=== PATIENT | female | born 1965 | race Caucasian/White ===

== ENCOUNTER → 2021-09-22 13:01 | Outpatient (BNVA) | payer MEDICAID, SELFPAY | PROVIDERS: Visit Provider Nurse Practitioner | DX: Z13.6 Encounter for screening for cardiovascular disorders (principal); Z87.891 Personal history of nicotine dependence | CPT/HCPCS: 71046; 80053; 80061; 84443; 85025 ==

== ENCOUNTER → 2021-09-29 10:08 | Outpatient (BNVA) | payer MEDICAID, SELFPAY | PROVIDERS: Visit Provider Nurse Practitioner | DX: G43.909 Migraine, unspecified, not intractable, without status migrainosus (principal); Z87.891 Personal history of nicotine dependence | CPT/HCPCS: 71046 ==

== ENCOUNTER → 2021-11-17 13:21 | Outpatient (BNVA) | payer MEDICAID, SELFPAY | PROVIDERS: Visit Provider Nurse Practitioner | DX: G43.909 Migraine, unspecified, not intractable, without status migrainosus (principal); M89.8X2 Other specified disorders of bone, upper arm; R20.2 Paresthesia of skin; E55.9 Vitamin D deficiency, unspecified | CPT/HCPCS: 72040; 73060; 80048; 82306 ==

== ENCOUNTER 2021-12-03 14:50 | Outpatient (CLI) | payer MEDICAID, SELFPAY ==
--- NOTE | 2021-12-03 14:55 | MM_ITS ---
WS: [id number] BILATERAL 3D TOMOSYNTHESIS DIGITAL SCREENING MAMMOGRAPHY WITH CAD CLINICAL INFORMATION: Z12.39 - Encounter for other screening for malignant neop... HISTORY: Screening mammogram. No current complaints. COMPARISON: None. TECHNIQUE: Bilateral CC and MLO views. FINDINGS: The breasts are composed of heterogeneous fibroglandular density tissue, which can limit the detectio n of small underlying mass lesions. A few incidental punctate calcifications. No suspicious mass, asy mmetry, calcifications, or architectural distortion. No evidence of malignancy. MM/[place] [id number] IMPRESSION: BI-RADS: 2-Benign FOLLOW UP: 1 Year Follow-up Recommend return to annual screening mammography.
== END 2021-12-03 14:51 | disposition home or self-care (01) ==
LOC: RAD 14:54
PROVIDERS: PCP Nurse Practitioner; Visit Provider Nurse Practitioner
DX: Z12.31 Encounter for screening mammogram for malignant neoplasm of breast (principal)
CPT/HCPCS: 77063; 77067

== ENCOUNTER 2022-04-18 06:23 | Emergency (ER) | payer MEDICAID, SELFPAY ==
[2022-04-18 06:29] VITALS: BP 112/75; PULSE 71; RESP 18; TEMP 36.8; O2SAT 98; BMI 20.2
--- NOTE | 2022-04-18 06:36 | ECG_ITS ---
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 Measurements Intervals [place] Rate: 69 P: 74 VT: 161 QRS: 68 QRSD: 94 T: 63 QT: 387 QTc: 416 Interpretive Statements SINUS RHYTHM No previous ECG available for comparison Electronically Signed On 04-18-2022 14:58:55 ADOLESCENT COORDINATOR by Viraj Bhat M.D. [id number]
--- NOTE | 2022-04-18 06:52 | XR_ITS ---
WS: [id number] PORTABLE CHEST HISTORY: dyspnea COMPARISON: 09/29/2021 Lungs are clear and well expanded. No pleural effusion or pneumothorax. Cardiac size: Normal. Mediastinum/Aorta: Normal mediastinum. No osseous abnormality seen. XR/XR chest 1V portable [id number] IMPRESSION: Unremarkable portable chest.
--- NOTE | 2022-04-18 06:54 | W.ED.CHESTPA ---
HPI - Chest Pain General: Chief Complaint: Anxiety Stated Complaint: swollen throat, doesn't feel well Time Seen by Provider: 04/18/22 06:30 Source: patient Mode of arrival: ambulatory History of Present Illness: 56-year-old female presents emergency room complaining of shortness of breath. She states she woke up suddenly in night float felt tired and felt like she could not get her breath she had some chest discomfort. She has not recently had a fever sweats chills no productive cough. Patient has a history of anxiety she does smoke she has no personal history of coronary artery disease but tells me that her has a history of coronary artery disease. No flulike symptoms no productive cough. She is not having any chest discomfort at this time. MD complaint: chest pain Onset (ago): minute(s) Timing of current episode: episodic Onset: during rest Pain location: substernal Pain radiation: none Severity: mild Quality: tightness and aching Relieving factors: nothing Exacerbating factors: nothing Associated symptoms: Reports dyspnea; Deny abdominal pain, diaphoresis, fever(s), leg edema, nausea, palpitations, sense of impending doom, syncope or vomiting Treatment prior to arrival: none Review of Systems Const: Denies: fever(s), chills, fatigue, malaise or diaphoresis ENMT: Denies: throat pain, ear or mastoid pain, nasal discharge or nasal congestion Card: Reports: chest pain; Denies: palpitations, irregular heart rhythm, edema, syncope, dyspnea on exertion or orthopnea Resp: Reports: dyspnea; Denies: productive cough, non-productive cough or wheezing GI: Denies: abdominal pain, nausea or vomiting : Denies: flank pain, difficulty voiding, dysuria, urinary frequency or urinary urgency Skin/Breast: Denies: rash or pruritus PFSH ED PFSH: Medical History Anxiety, generalized Blind hypertensive eye, right Migraine Personal history of nicotine dependence age 15 Surgical History History of eye surgery right eye 8 to 10 surgeries History of laparotomy Cyst ovary Family History Grandmother Cancer Mother Cancer Other Diabetes Denies family history of Stroke Social History Smoking and tobacco status: current every day smoker Second hand smoke exposure: No Smoking risk assessment/counseling performed?: Yes Alcohol intake: never Desire information about alcohol rehabilitation?: No Counseling given: No Desire information about substance/drug rehabilitation?: No Counseling given: No Adopted: No Caregiver/support person: No Lives independently: Yes Household members: spouse Housing: House Marital status: Number of children: 2 service: No Current occupational status: unemployed Current occupational exposures/hazards: No Pets and animals: Yes Pets & animals: dog(s) History of recent travel: No Current gender identity: Female Physical Exam Const: COMMON NORMALS: no acute distress GENERAL APPEARANCE: cooperative and comfortable ORIENTATION/CONSCIOUSNESS: Yes awake, Yes oriented to person, Yes oriented to place and Yes oriented to time HENMT: COMMON NORMALS: normocephalic, atraumatic, hearing grossly normal bilaterally, external ears normal, EAC's normal, TM's normal bilaterally, Normal nasal mucous membranes and turbinates present, moist oral mucous membranes and oropharynx normal HEAD & SCALP: normocephalic and atraumatic NOSE: Normal nasal mucous membranes and turbinates present EXTERNAL EAR: Yes external ears normal EXTERNAL AUDITORY CANAL: EAC's normal TYMPANIC MEMBRANE: TM's normal bilaterally Eye: COMMON NORMALS: Equal, round and reactive pupils present, EOMs intact bilaterally, conjunctivae normal and no scleral icterus CONJUNCTIVA: Yes conjunctivae normal PUPIL: Yes Equal, round and reactive pupils present Neck/C-Spine: COMMON NORMALS: full ROM, no lymphadenopathy, supple and no JVD Lymph: LYMPHATIC: no lymphadenopathy noted and no lymphedema noted Resp: COMMON NORMALS: normal respiratory effort, No retractions, No use of accessory muscles and clear to auscultation bilaterally AUSCULTATION: clear to auscultation bilaterally Cardio: COMMON NORMALS: no JVD, regular rate, regular rhythm and No murmurs present (Cardio) RATE: regular rate RHYTHM: regular rhythm GI: COMMON NORMALS: Soft to palpation and No hepatosplenomegaly present AUSCULTATION: Yes normoactive bowel sounds PALPATION: Yes Soft to palpation, No Tenderness to palpation present (GI), No Guarding due to palpation present (GI) and Yes No hepatosplenomegaly present Extremity: COMMON NORMALS: normal to inspection, capillary refill normal, no clubbing, cyanosis or edema, no calf tenderness and no pedal edema Neuro: SENSORIUM/ORIENTATION: Yes oriented to person, Yes oriented to place and Yes oriented to time Skin: COMMON NORMALS: no rashes or lesions noted GENERAL SKIN EXAM: no rashes or lesions noted Course Vital Signs: Vital signs: Vital Signs Temperature 98.3 F 04/18/22 06:29 Pulse Rate 59 L 04/18/22 08:43 Respiratory Rate 25 H 04/18/22 08:06 Blood Pressure 104/71 04/18/22 08:43 Pulse Oximetry 98 04/18/22 08:43 Oxygen Delivery Me thod 04/18/22 08:43 MDM - Chest Pain Medical Decision Making EKG does not show any acute changes normal sinus rhythm with no ST changes. Troponins are negative. Chest x-ray unremarkable patient has normal to bradycardic heart rate with normal oxygen saturations. She is not having any significant chest discomfort associated with this she has had multiple episodes of this in the past stretching over 5 years think this is more anxiety there is no evidence of pulmonary embolism pneumonia pneumothorax dissecting aneurysm or acute coronary syndrome. We will discharge patient home encouraged to follow-up with her primary care doctor sent a very low-dose Effexor may benefit her to have this increase. Medical Records I reviewed the patient's medical records. Lab Data I reviewed the patient's lab results. 04/18/22 07:24 04/18/22 07:24 Radiology Impressions Chest X-Ray 04/18/22 06:52 IMPRESSION: Unremarkable portable chest. Laboratory Results WBC 9.3 10^3/uL (4.0-10.0) 04/18/22 07:24 RBC 4.84 10^6/uL (4.1-5.3) 04/18/22 07:24 Hgb 14.8 g/dL (11.5-15.3) 04/18/22 07:24 Hct 44.4 % (37.0-47.0) 04/18/22 07:24 MCV 91.7 fl (81-99) 04/18/22 07:24 MCH 30.6 pg (28.0-34.0) 04/18/22 07:24 MCHC 33.3 g/dL (30.0-36.0) 04/18/22 07:24 RDW 14.3 % (12.1-15.1) 04/18/22 07:24 Plt Count 258 10^3/cmm (130-400) 04/18/22 07:24 MPV 9.8 fL (7.4-10.4) 04/18/22 07:24 Neut % (Auto) 77.7 % 04/18/22 07:24 Lymph % (Auto) 14.3 % 04/18/22 07:24 [place] % (Auto) 5.4 % 04/18/22 07:24 Eos % (Auto) 1.8 % 04/18/22 07:24 Baso % (Auto) 0.3 % 04/18/22 07:24 Neut # (Auto) 7.18 10^3/uL (1.8-7.7) 04/18/22 07:24 Lymph # (Auto) 1.3 10^3/uL (0.8-4.8) 04/18/22 07:24 [place] # (Auto) 0.5 10^3/uL (0.2-0.9) 04/18/22 07:24 Eos # (Auto) 0.2 10^3/uL (0.0-0.8) 04/18/22 07:24 Baso # (Auto) 0.0 10^3/uL (0.0-0.1) 04/18/22 07:24 Nucleated RBC % (auto) 0 % 04/18/22 07:24 Nucleated RBCs # 0.0 /100WBC 04/18/22 07:24 Sodium 138 mmol/L (136-145) 04/18/22 07:24 Potassium 4.3 mmol/L (3.5-5.1) 04/18/22 07:24 Chloride 105 mmol/L (98-107) 04/18/22 07:24 Carbon Dioxide 26 mmol/L (22-29) 04/18/22 07:24 Anion Gap 11.3 (5-19) 04/18/22 07:24 BUN 6 mg/dL (6-20) 04/18/22 07:24 Creatinine 0.5 mg/dL (0.5-0.9) 04/18/22 07:24 GFR Calculation 127.6 mL/min (90-130) 04/18/22 07:24 Glucose 109 mg/dL (65-115) 04/18/22 07:24 Calculated Osmolality 284 mOsm/kg (285-295) L 04/18/22 07:24 Calcium 8.9 mg/dL (8.5-10.5) 04/18/22 07:24 Total Bilirubin 0.2 mg/dL (0.15-1.2) 04/18/22 07:24 AST 19 U/L (0-32) 04/18/22 07:24 ALT 16 U/L (0-33) 04/18/22 07:24 Alkaline Phosphatase 73 U/L (35-105) 04/18/22 07:24 Troponin T Baseline 6 ng/L (0-10) 04/18/22 07:24 Troponin T 120 Minute 6.00 ng/L (0-10) 04/18/22 08:40 Delta Troponin T 0 ABS# (0-10) 04/18/22 08:40 Total Protein 6.8 g/dL (6.6-8.7) 04/18/22 07:24 Albumin 4.1 g/dL (3.5-5.2) 04/18/22 07:24 Globulin 2.7 g/dL (1.3-4.6) 04/18/22 07:24 Discharge Plan Discharge Patient Disposition: Home Clinical Impression: Acute dyspnea, Anxiety, generalized Condition: Stable Prescriptions: No Action venlafaxine [Effexor XR] 37.5 mg capsule,extended release 24hr 37.5 mg PO DAILY Qty: 30 5RF ergocalciferol (vitamin D2) 1,250 mcg (50,000 unit) capsule 1,250 mcg PO .weekly Qty: 4 0RF Discharge Orders: Discharge ED (Routine); Ordered 04/18/22 Ordered By: Hoang Mehta Referrals: Xavi Jang, MAT[employer] HANDLER-C [Primary Care Provider] - Discharge Diet: Usual diet Discharge Activity: Resume usual activity Patient Instructions: Opioid Safety, Pain Management Activity Restrictions/Additional Instructions: You were seen today for shortness of breath. Your EKG chest x-ray cardiac enzymes are all negative your vital signs are normal. Given the length of time he would reported this going on suspect that anxiety may play a significant role in this. Recommend you follow-up with your primary care doctor to look at adjusting your medications such as venlafaxine or adding secondary medicines. 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
[2022-04-18] MEDS: aspirin 81 mg Chew Tablet 324 MG PO (07:31)
[2022-04-18 07:32] VITALS: BP 113/73; PULSE 61; O2SAT 99
[2022-04-18 07:36] LABS: Basophils % 0.3 %; Eosinophils # 0.2 10^3/uL (0.0-0.8); Eosinophils % 1.8 %; Hematocrit 44.4 % (37.0-47.0); Hemoglobin 14.8 g/dL (11.5-15.3); Lymphocytes # 1.3 10^3/uL (0.8-4.8); Lymphocytes % 14.3 %; Mean Corpuscular HGB Conc 33.3 g/dL (30.0-36.0); Mean Corpuscular Hemoglobin 30.6 pg (28.0-34.0); Mean Corpuscular Volume 91.7 fl (81-99); Mean Platelet Volume 9.8 fL (7.4-10.4); Monocytes # 0.5 10^3/uL (0.2-0.9); Monocytes % 5.4 %; Neutrophils # 7.18 10^3/uL (1.8-7.7); Neutrophils % 77.7 %; Nucleated Red Blood Cells % 0 %; Platelet Count 258 10^3/cmm (130-400); Red Blood Count 4.84 10^6/uL (4.1-5.3); Red Cell Distribution Width 14.3 % (12.1-15.1); White Blood Count 9.3 10^3/uL (4.0-10.0)
[2022-04-18 08:02] LABS: Troponin(5th) Baseline 6 ng/L (0-10)
[2022-04-18 08:05] LABS: Alanine Aminotransferase 16 U/L (0-33); Albumin Level 4.1 g/dL (3.5-5.2); Alkaline Phosphatase 73 U/L (35-105); Anion Gap 11.3 (5-19); Aspartate Amino Transferase 19 U/L (0-32); Blood Urea Nitrogen 6 mg/dL (6-20); Calcium 8.9 mg/dL (8.5-10.5); Carbon Dioxide 26 mmol/L (22-29); Chloride 105 mmol/L (98-107); Globulin 2.7 g/dL (1.3-4.6); Glomerular Filtration Rate 127.6 mL/min (90-130); Glucose 109 mg/dL (65-115); Osmolality Calculated 284 mOsm/kg (285-295); Potassium 4.3 mmol/L (3.5-5.1); Sodium 138 mmol/L (136-145); Total Bilirubin 0.2 mg/dL (0.15-1.2); Total Protein 6.8 g/dL (6.6-8.7)
[2022-04-18 08:06] VITALS: BP 111/75; PULSE 54; RESP 25; O2SAT 97
[2022-04-18 08:43] VITALS: BP 104/71; PULSE 59; O2SAT 98
[2022-04-18 09:11] LABS: Troponin 5 2HR Delta 0 ABS# (0-10)
[2022-04-18 09:25] VITALS: BP 111/72; PULSE 60; O2SAT 100
[2022-04-21 12:14] LABS: 25 Hydroxy Vitamin D 25 ng/mL (30-100)
== END 2022-04-18 09:23 | disposition home or self-care (01) ==
PROVIDERS: Emergency Provider Family Medicine; PCP Nurse Practitioner
DX: F41.1 Generalized anxiety disorder (principal); R06.00 Dyspnea, unspecified; F17.210 Nicotine dependence, cigarettes, uncomplicated
CPT/HCPCS: 71045; 80053; 82306; 84484; 85025; 93005; 99285

== ENCOUNTER → 2022-10-26 09:07 | Outpatient (BNVA) | payer MEDICAID, SELFPAY | PROVIDERS: PCP Nurse Practitioner; Visit Provider Nurse Practitioner | DX: E55.9 Vitamin D deficiency, unspecified (principal); Z13.6 Encounter for screening for cardiovascular disorders; F41.1 Generalized anxiety disorder | CPT/HCPCS: 80053; 80061; 82306; 84443; 85025 ==

== ENCOUNTER 2022-12-05 07:30 | Outpatient (CLI) | payer MEDICAID, SELFPAY ==
--- NOTE | 2022-12-05 08:00 | US_ITS ---
WS: [id number] Complete ABDOMINAL ULTRASOUND HISTORY: R10.84 - Generalized abdominal pain COMPARISON: None available. Liver: 14.5 cm in length. Normal size liver. There is a cyst in the medial RIGHT lobe measuring 1.4 x 1.3 x 1.6 cm. This is adjacent to the gallbladder. Portal Vein: Normal hepatopetal flow with monophasic waveform. Gallbladder: Normally distended gallbladder with no stones or wall thickening. CBD: 0.3 cm Pancreas: Normal size and echogenicity. Right kidney: 9.7 cm x 5.8 x 3.8 cm. Cortex:1.4 cm. Normal size and echogenicity. No hydronephrosis or mass. Left kidney: 11.2 cm x 4.9 cm x 5.3 cm. Cortex: 1.2 cm. Normal size and echogenicity. No hydronephrosis or mass. Spleen: Normal. Aorta and IVC: Unremarkable abdominal aorta and IVC. US/US abdomen complete* [id number] Impression: 1. Normal gallbladder. 2. Hepatic cyst RIGHT lobe maximum diameter of 1.6 cm. 3. No renal obstruction.
--- NOTE | 2022-12-05 09:38 | MM_ITS ---
WS: [id number] BILATERAL SCREENING DIGITAL TOMOSYNTHESIS MAMMOGRAM WITH CAD HISTORY: Z12.31 - Encounter for screening mammogram for malignant ... COMPARISON: 12/03/2021 Bilateral CC and MLO views with tomosynthesis and synthetic mammography submitted. Computer aided det ection analyzed. Breast composition: There are scattered areas of fibroglandular density. No suspicious masses, microc alcifications or architectural distortion. A few benign scattered punctate calcifications. MM/[id number] IMPRESSION: BI-RADS: 2-Benign FOLLOW UP: 1 Year Follow-up
== END 2022-12-05 07:31 | disposition home or self-care (01) ==
PROVIDERS: PCP Nurse Practitioner; Visit Provider Nurse Practitioner
DX: Z12.31 Encounter for screening mammogram for malignant neoplasm of breast (principal); R10.84 Generalized abdominal pain; K76.89 Other specified diseases of liver
CPT/HCPCS: 76700; 77063; 77067

== ENCOUNTER → 2023-08-30 11:00 | Outpatient (BNVA) | payer MEDICAID, SELFPAY | PROVIDERS: PCP Nurse Practitioner; Visit Provider Nurse Practitioner | DX: E55.9 Vitamin D deficiency, unspecified (principal); Z13.6 Encounter for screening for cardiovascular disorders; M79.10 Myalgia, unspecified site; F41.1 Generalized anxiety disorder | CPT/HCPCS: 80053; 80061; 82306 ==

== ENCOUNTER 2023-09-25 09:42 | Emergency (ER) | payer MEDICAID, SELFPAY ==
--- NOTE | 2023-09-25 09:48 | XRR_ITS ---
PROCEDURE INFORMATION: Exam: XR Left Foot Exam date and time: 09/25/2023 10:16 AM Age: 58 years old Clinical indication: Injury or trauma; Fall; Blunt trauma; Foot; Left; Additional info: Pain TECHNIQUE: Imaging protocol: Radiologic exam of the left foot. Views: 3 or more views. COMPARISON: No relevant prior studies available. FINDINGS: Bones/joints: Normal. No fracture or dislocation. Soft tissues: Normal. XR/XR foot LT min 3V* [id number] IMPRESSION: No acute findings.
[2023-09-25 09:52] VITALS: BP 118/77; PULSE 94; RESP 16; TEMP 36.4; O2SAT 99
[2023-09-25 11:19] VITALS: BP 124/80; PULSE 82; RESP 17; O2SAT 98
--- NOTE | 2023-09-25 11:21 | XRR_ITS ---
PROCEDURE INFORMATION: Exam: XR Left Ankle Exam date and time: 09/25/2023 11:27 AM Age: 58 years old Clinical indication: Injury or trauma; Fall; Blunt trauma; Ankle; Left; Additional info: Fall/swelling TECHNIQUE: Imaging protocol: Radiologic exam of the left ankle. Views: 3 or more views. COMPARISON: CR XR foot LT min 3V* [id number] 09/25/2023 10:16 AM FINDINGS: Bones/joints: No acute fracture or dislocation. Minimal plantar calcaneal spurring. Soft tissues: Mild soft tissue swelling about the lateral ankle. XR/XR ankle LT min 3V* [id number] IMPRESSION: 1. Mild soft tissue swelling about the lateral ankle. 2. No acute fracture or dislocation.
--- NOTE | 2023-09-25 11:26 | ED_ITS ---
Documented by User: CADEN Wolfe 09/25/23 11:46 HPI - Extremity Problem General: Chief complaint: Extremity Injury, Lower Stated complaint: left foot injury Time Seen by Provider: 09/25/23 09:45 Source: patient Mode of arrival: ambulatory Limitations: no limitations History of Present Illness: Patient is a 58-year-old female presenting to the emergency department complaining of left foot and ankle pain onset 1 day. Patient was stepping out of her camper when she injured the foot and ankle, stating that she is unsure the mechanism as it all happened so fast. However she does believe it was an inversion ankle injury. She has no prior surgeries or similar injuries to that ankle. Pain is primarily to the lateral malleolus and dorsum of the foot, which has been increasingly swollen since the incident. She does note that she has remained ambulatory, and actually comments that the pain at this time is not as bad as it has been. At this time she has not taken anything for pain or used any [id number]-[id number] remedies such as ice. No other injuries noted and patient did not hit her head with the fall. MD Complaint: extremity pain, extremity swelling, joint swelling and joint pain Onset (ago): day(s) Pain Consistency: constant Location: left Radiation: none Exacerbating factors: range of motion and palpation Associated symptoms: Deny chest pain, fever(s) or rash Review of Systems General: Reports: 10 or more systems reviewed and unremarkable except in HPI and below Const: Denies: fever(s) or chills Card: Denies: chest pain Resp: Denies: dyspnea GI: Denies: abdominal pain, nausea, vomiting or diarrhea Musc: Reports: extremity pain, extremity swelling, joint pain and joint swelling; Denies: neck pain or back pain Skin/Breast: Denies: rash Neuro: Denies: headache(s) PFSH ED PFSH: Medical History Anxiety, generalized Personal history of nicotine dependence age 15 Migraine Blind hypertensive eye, right Surgical History History of eye surgery right eye 8 to 10 surgeries History of laparotomy Cyst ovary Family History Grandmother Cancer Mother Cancer Other Diabetes Denies family history of Stroke Social History Smoking and tobacco/nicotine status: current every day tobacco/nicotine user Second hand smoke exposure: No Alcohol intake: never Substance/Drug Use: never Adopted: No Caregiver/support person: No Lives independently: Yes Household members: spouse Housing: House Marital status: Number of children: 2 service: No Current occupational status: unemployed Current occupational exposures/hazards: No Pets and animals: Yes Pets & animals: dog(s) Do you think of yourself as: Straight/Heterosexual Current gender identity: Female Physical Exam Const: COMMON NORMALS: no acute distress, patient oriented x3, no limitations, healthy appearing and alert GENERAL APPEARANCE: cooperative and comfortable HENMT: COMMON NORMALS: normocephalic and atraumatic HEAD & SCALP: normocephalic and atraumatic Eye: COMMON NORMALS: EOMs intact bilaterally and conjunctivae normal CONJUNCTIVA: Yes conjunctivae normal Neck/C-Spine: COMMON NORMALS: full ROM Resp: COMMON NORMALS: normal respiratory effort, No use of accessory muscles and clear to auscultation bilaterally AUSCULTATION: clear to auscultation bilaterally Cardio: COMMON NORMALS: regular rate, regular rhythm, No gallops present (Cardio), No clicks present (Cardio) and No murmurs present (Cardio) RATE: regular rate RHYTHM: regular rhythm Extremity: NARRATIVE EXTREMITY EXAM: Dorsum of left foot moderately swollen and tender to palpation. Lateral malleolus additionally is swollen and tender, this extends proximally up the lateral [place]. She does have a positive ankle squeeze test. Negative calcaneal squeeze. Negative anterior drawer. No obvious dislocations or other signs of trauma. There is mild amount of bruising noted to the lateral aspect of the foot. No distal sensory changes. Knee joint examination unremarkable. She is able to move the foot, mild pain noted with range of motion. Neuro: COMMON NORMALS: patient oriented x3, moves all extremities, no focal motor deficits and no sensory deficits noted SENSORIUM/ORIENTATION: Yes alert GAIT: Yes Antalgic gait present Psych: COMMON NORMALS: mental status grossly normal Skin: COMMON NORMALS: no rashes or lesions noted GENERAL SKIN EXAM: no rashes or lesions noted Course Vital Signs: Vital signs: Vital Signs Temperature 97.6 F 09/25/23 09:52 Pulse Rate 84 09/25/23 11:48 Respiratory Rate 17 09/25/23 11:48 Blood Pressure 109/70 09/25/23 11:48 Pulse Oximetry 98 09/25/23 11:48 Oxygen Delivery Me thod Room Air 09/25/23 11:19 MDM - Extremity (Nontraumatic) Medical Decision Making Patient seen in the emergency department for left foot and ankle injury suffered yesterday morning while stepping out of her camper. On arrival she is still ambulatory and on examination states her pain is actually improving. She does have a moderate amount of swelling noted to the dorsum of the left foot and left lateral ankle. X-rays of the left foot and ankle were negative for any acute fractures. I do have concern that she has a high grade ankle sprain and will be referred to Ortho and made nonweightbearing at this time with crutch training given. Told her to enact RICE therapy and start taking ibuprofen and Tylenol for pain as she states she has not taken anything to this point. She endorses understanding and reasons to return discussed. Lab Data Radiology Impressions Foot X-Ray 09/25/23 09:48 IMPRESSION: No acute findings. Ankle X-Ray 09/25/23 11:21 IMPRESSION: 1. Mild soft tissue swelling about the lateral ankle. 2. No acute fracture or dislocation. XR interpretation done by ED provider, pending radiology final review Discharge Plan Discharge Patient Disposition: Home Clinical Impression: High ankle sprain of left lower extremity Qualifiers: Encounter type: initial encounter Qualified Code(s): S93.492A - Sprain of other ligament of left ankle, initial encounter Sprain of foot, left Qualifiers: Encounter type: initial encounter Qualified Code(s): S93.602A - Unspecified sprain of left foot, initial encounter Condition: Stable Prescriptions: No Action cholecalciferol (vitamin D3) 125 mcg (5,000 unit) capsule 125 mcg PO DAILY tizanidine [Zanaflex] 4 mg tablet 4 mg PO .at bedtime Qty: 30 5RF venlafaxine [Effexor XR] 75 mg capsule,extended release 24hr 75 mg PO QAM Qty: 30 5RF albuterol sulfate [Ventolin HFA] 90 mcg/actuation HFA aerosol inhaler 2 puff inhalation Q6H PRN (Reason: shortness of breath or wheezing) Qty: 8.5 0RF Discharge Orders: Discharge ED (Routine); Ordered 09/25/23 Ordered By: Isauro Santos Referrals: Xavi Jang FNP-C [Primary Care Provider] - Discharge Diet: Usual diet Discharge Activity: Use walker/crutches as instructed Patient Instructions: Ankle Sprain (ED), Foot Sprain (ED), RICE Therapy Activity Restrictions/Additional Instructions: Nonweightbearing as instructed until follow-up with orthopedics. Rest, ice, compression, and elevation of the left lower extremity as discussed. You may take Tylenol and ibuprofen for pain relief. Return if you have any new or concerning symptoms. Coding Level of Care Code ED Card Hanger for Chg Fwd Documented by User: Hoang Mehta, 09/25/23 13:40 HPI - Extremity Problem General: Chief complaint: Extremity Injury, Lower Stated complaint: left foot injury Time Seen by Provider: 09/25/23 09:45 [facility] ED PFSH: Medical History Anxiety, generalized Personal history of nicotine dependence age 15 Migraine Blind hypertensive eye, right Surgical History History of eye surgery right eye 8 to 10 surgeries History of laparotomy Cyst ovary Family History Grandmother Cancer Mother Cancer Other Diabetes Denies family history of Stroke Social History Smoking and tobacco/nicotine status: current every day tobacco/nicotine user Second hand smoke exposure: No Alcohol intake: never Substance/Drug Use: never Adopted: No Caregiver/support person: No Lives independently: Yes Household members: spouse Housing: House Marital status: Number of children: 2 service: No Current occupational status: unemployed Current occupational exposures/hazards: No Pets and animals: Yes Pets & animals: dog(s) Do you think of yourself as: Straight/Heterosexual Current gender identity: Female Course Vital Signs: Vital signs: Vital Signs Temperature 97.6 F 09/25/23 09:52 Pulse Rate 84 09/25/23 11:48 Respiratory Rate 17 09/25/23 11:48 Blood Pressure 109/70 09/25/23 11:48 Pulse Oximetry 98 09/25/23 11:48 Oxygen Delivery Me thod Room Air 09/25/23 11:19 MDM - Extremity (Nontraumatic) Medical Decision Making Patient seen in the emergency department for left foot and ankle injury suffered yesterday morning while stepping out of her camper. On arrival she is still ambulatory and on examination states her pain is actually improving. She does have a moderate amount of swelling noted to the dorsum of the left foot and left lateral ankle. X-rays of the left foot and ankle were negative for any acute fractures. I do have concern that she has a high grade ankle sprain and will be referred to Ortho and made nonweightbearing at this time with crutch training given. Told her to enact RICE therapy and start taking ibuprofen and Tylenol for pain as she states she has not taken anything to this point. She endorses understanding and reasons to return discussed. Chart reviewed and patient discussed with midlevel. Agree with assessment and plan. Lab Data Radiology Impressions Foot X-Ray 09/25/23 09:48 IMPRESSION: No acute findings. Ankle X-Ray 09/25/23 11:21 IMPRESSION: 1. Mild soft tissue swelling about the lateral ankle. 2. No acute fracture or dislocation. Discharge Plan Discharge Patient Disposition: Home Clinical Impression: High ankle sprain of left lower extremity Qualifiers: Encounter type: initial encounter Qualified Code(s): S93.492A - Sprain of other ligament of left ankle, initial encounter Sprain of foot, left Qualifiers: Encounter type: initial encounter Qualified Code(s): S93.602A - Unspecified sprain of left foot, initial encounter Condition: Stable Prescriptions: No Action cholecalciferol (vitamin D3) 125 mcg (5,000 unit) capsule 125 mcg PO DAILY tizanidine [Zanaflex] 4 mg tablet 4 mg PO .at bedtime Qty: 30 5RF venlafaxine [Effexor XR] 75 mg capsule,extended release 24hr 75 mg PO QAM Qty: 30 5RF albuterol sulfate [Ventolin HFA] 90 mcg/actuation HFA aerosol inhaler 2 puff inhalation Q6H PRN (Reason: shortness of breath or wheezing) Qty: 8.5 0RF Discharge Orders: Discharge ED (Routine); Ordered 09/25/23 Ordered By: Isauro Santos Referrals: Xavi Jang, REGISTERED RESPIRATORY TECHNICIAN-C [Primary Care Provider] - Discharge Diet: Usual diet Discharge Activity: Use walker/crutches as instructed Patient Instructions: Ankle Sprain (ED), Foot Sprain (ED), RICE Therapy Activity Restrictions/Additional Instructions: Nonweightbearing as instructed until follow-up with orthopedics. Rest, ice, compression, and elevation of the left lower extremity as discussed. You may take Tylenol and ibuprofen for pain relief. Return if you have any new or concerning symptoms. Coding Level of Care Code ED Card Hanger for Olga Lidia Sornesen
[2023-09-25] MEDS: ketorolac 60 mg/2 mL INJ IM (11:30)
[2023-09-25 11:48] VITALS: BP 109/70; PULSE 84; RESP 17; O2SAT 98
--- NOTE | 2023-09-25 14:13 | DCPLANNER ---
ortho messaged for er f/u
== END 2023-09-25 11:50 | disposition home or self-care (01) ==
PROVIDERS: Emergency Provider Physician Assistant; PCP Nurse Practitioner
DX: S93.492A Sprain of other ligament of left ankle, initial encounter (principal); S93.602A Unspecified sprain of left foot, initial encounter; X50.1XXA Overexertion from prolonged static or awkward postures, initial encounter; F17.200 Nicotine dependence, unspecified, uncomplicated
CPT/HCPCS: 73610; 73630; 96372; 99284; E0114; J1885

== ENCOUNTER → 2023-10-17 13:33 | Outpatient (BNVA) | payer MEDICAID, SELFPAY | PROVIDERS: PCP Nurse Practitioner; Visit Provider Podiatrist Foot & Ankle Surgery | DX: S99.912D Unspecified injury of left ankle, subsequent encounter; S99.922D Unspecified injury of left foot, subsequent encounter; S93.622D Sprain of tarsometatarsal ligament of left foot, subsequent encounter; S93.492D Sprain of other ligament of left ankle, subsequent encounter; S92.252D Displaced fracture of navicular [scaphoid] of left foot, subsequent encounter for fracture with routine healing; W17.89XD Other fall from one level to another, subsequent encounter | CPT/HCPCS: 73630 ==

== ENCOUNTER → 2023-11-29 11:15 | Outpatient (BNVA) | payer BC, MEDICAID, SELFPAY | PROVIDERS: PCP Nurse Practitioner; Visit Provider Nurse Practitioner | DX: Z87.891 Personal history of nicotine dependence (principal); M79.10 Myalgia, unspecified site; F41.1 Generalized anxiety disorder; E55.9 Vitamin D deficiency, unspecified | CPT/HCPCS: 80053; 80061; 82306; 85025 ==

== ENCOUNTER 2023-12-08 11:02 | Outpatient (CLI) | payer BC, MEDICAID, SELFPAY ==
--- NOTE | 2023-12-08 11:09 | XR_ITS ---
WS: [id number] Chest 2 views, 12/08/2023 Clinical Data: R05.9 - Cough, unspecified Comparison: Portable chest, 04/18/2022 Findings: There is a retrocardiac patchy opacity which could represent atelectasis and/or pneumonia. The remainder of the lungs is clear. No nodules, masses or effusions are seen. The heart is normal. T he pulmonary vascularity is not increased. No pneumothorax is seen. XR/XR chest 2V* [id number] Impression: 1. Patchy opacity in retrocardiac region which could represent atelectasis or m inimal pneumonia. 2. Recommend follow-up chest x-ray in 3 to 5 days.
== END 2023-12-08 11:03 | disposition home or self-care (01) ==
LOC: RAD 11:03
PROVIDERS: PCP Nurse Practitioner; Visit Provider Nurse Practitioner
DX: R91.8 Other nonspecific abnormal finding of lung field (principal); R05.9 Cough, unspecified
CPT/HCPCS: 71046

== ENCOUNTER 2024-01-03 18:20 | Emergency (ER) | payer BC, MEDICAID, SELFPAY ==
[2024-01-03 18:28] VITALS: BP 116/77; PULSE 82; RESP 16; TEMP 36.7; O2SAT 97; BMI 23.3
--- NOTE | 2024-01-03 18:30 | XRR_ITS ---
PROCEDURE INFORMATION: Exam: XR Left Hand Exam date and time: 01/03/2024 6:45 PM Age: 58 years old Clinical indication: Injury or trauma; Fall; Other: Pain; Additional info: Injury, fell out of camper 2 days ago, pain in L wrist and hand, Dr placed immobilization device prior TECHNIQUE: Imaging protocol: Radiologic exam of the left hand. Views: 3 or more views. COMPARISON: No relevant prior studies available. FINDINGS: Tubes, catheters and devices: Splint in place. Bones/joints: There is no evidence of acute fracture. Mild diffuse IP joint degeneration. 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 There is no evidence of joint malalignment or dislocation. Soft tissues: Soft tissues are unremarkable as visualized. XR/XR hand LT min 3V* [id number] IMPRESSION: No acute findings.
--- NOTE | 2024-01-03 18:30 | XRR_ITS ---
PROCEDURE INFORMATION: Exam: XR Left Wrist Exam date and time: 01/03/2024 6:47 PM Age: 58 years old Clinical indication: Injury or trauma; Fall; Other: Pain; Additional info: Injury, fell out of camper 2 days ago, pain in L wrist and hand, Dr placed immobilization device prior TECHNIQUE: Imaging protocol: Radiologic exam of the left wrist. Views: 3 or more views. COMPARISON: CR (UP EX, ) 01/03/2024 6:45 PM FINDINGS: Tubes, catheters and devices: Splint in place. Bones/joints: There is no evidence of acute fracture. There is no evidence of joint malalignment or dislocation. Anatomic alignment is maintained. Soft tissues: Soft tissues are unremarkable as visualized. XR/XR wrist LT min 3V* [id number] IMPRESSION: 1. Splint in place. Anatomic alignment is maintained. 2. No acute fracture or dislocation.
--- NOTE | 2024-01-03 19:13 | W.ED.UPPEXIN ---
HPI - Extremity Injury (Upper) General: Chief Complaint: Extremity Injury, Upper Stated Complaint: doc sent for xrays on left wrist Time Seen by Provider: 01/03/24 18:22 Source: patient Mode of arrival: ambulatory Limitations: no limitations History of Present Illness: Patient is a 58-year-old female presents to ED today with a complaint of left hand injury that she sustained yesterday after she was walking out of her camper and she accidentally struck the left hand on her camper door she has no other injuries or complaints at this time. She noticed swelling to the dorsum of her left hand. complaint: injury to: left and hand Onset (ago): day(s) (yesterday) Other Extremity Injury: Left: hand Other injuries: none Place: home Severity: moderate Relieving factors: immobilization Exacerbating factors: movement of extremity Context: direct blow Associated symptoms: Reports no associated symptoms Treatments prior to arrival: bandage and splint Related Data Home Medications Medication Instructions Recorded Confirmed cholecalciferol (vitamin D3) 125 125 mcg PO DAILY 10/26/22 01/03/24 mcg (5,000 unit) capsule Previous Rx's Medication Instructions Recorded Cam boot to left #1 ea 10/05/23 ASO to left #1 ea 10/17/23 albuterol sulfate 90 mcg/actuation 2 puff inhalation Q6H PRN 11/23/23 aerosol inhaler (Ventolin HFA) shortness of breath or wheezing #8.5 grams fluticasone furoate 100 1 inh inhalation Q24H #30 ea 11/29/23 mcg/actuation blister powder for inhalation (Arnuity Ellipta) tizanidine 4 mg tablet (Zanaflex) 4 mg PO .at bedtime muscle 11/29/23 spasticity #30 tabs umeclidinium 62.5 mcg-vilanterol 1 inh inhalation Q24H #60 ea 11/29/23 25 mcg/actuation powdr for inhalation (Anoro Ellipta) venlafaxine 75 mg capsule,extended 75 mg PO QAM #30 caps 11/29/23 release 24 hr (Effexor XR) doxycycline hyclate 100 mg capsule 100 mg PO BID 10 days #20 caps 01/03/24 Allergies Allergy/AdvReac Type Severity Reaction Status Date / Time codeine Allergy Severe ADR-Dizzine Verified 11/29/23 10:17 ss Review of Systems Musc: Reports: extremity pain (L hand) and extremity swelling (L hand) Neuro: Denies: numbness in extremities or sensory changes PFSH ED PFSH: Medical History Anxiety, generalized Personal history of nicotine dependence age 15 Migraine Blind hypertensive eye, right Surgical History History of eye surgery right eye 8 to 10 surgeries History of laparotomy Cyst ovary Family History Grandmother Cancer Mother Cancer Other Diabetes Denies family history of Stroke Social History Smoking and tobacco/nicotine status: never used tobacco/nicotine Second hand smoke exposure: No Alcohol intake: never Substance/Drug Use: never Adopted: No Caregiver/support person: No Lives independently: Yes Household members: spouse Housing: House Marital status: Number of children: 2 service: No Current occupational status: unemployed Current occupational exposures/hazards: No Pets and animals: Yes Pets & animals: dog(s) Do you think of yourself as: Straight/Heterosexual Current gender identity: Female Physical Exam Const: COMMON NORMALS: no acute distress, average body habitus, no limitations, healthy appearing, alert and well nourished Extremity: COMMON NORMALS: capillary refill normal GENERAL: Yes normal exam except as noted LEFT UPPER EXTREMITY: Yes hand & digits (TTP/edema dorsal L hand; small non-infected abrasion) Left hand and digits: Yes neurovascular exam (normal) Neuro: COMMON NORMALS: moves all extremities, no focal motor deficits and no sensory deficits noted SENSORIUM/ORIENTATION: Yes alert Course Vital Signs: Vital signs: Vital Signs Temperature 98.1 F 01/03/24 18:28 Pulse Rate 82 01/03/24 18:28 Respiratory Rate 16 01/03/24 18:28 Blood Pressure 116/77 01/03/24 18:28 Pulse Oximetry 97 01/03/24 18:28 Oxygen Delivery Me thod Room Air 01/03/24 18:28 MDM - Extremity Injury (Upper) Medical Decision Making Personal interpretation of patient's XRs are unremarkable. She will be allowed discharge with conservative therapy treatments at home. Recommend follow-up with primary care in 1 to 2 weeks if symptoms do not seem to be improving. XR interpretation done by ED provider, pending radiology final review ED provider radiology interpretation(s): XR interpretation done by ED provider, pending radiology final review ED provider radiology interpretation(s): XR of left hand and wrist unremarkable Discharge Plan Discharge Patient Disposition: Home Clinical Impression: Contusion of left hand Qualifiers: Encounter type: initial encounter Qualified Code(s): S60.222A - Contusion of left hand, initial encounter Condition: Stable Prescriptions: No Action doxycycline hyclate 100 mg capsule 100 mg PO BID 10 Days Qty: 20 0RF cholecalciferol (vitamin D3) 125 mcg (5,000 unit) capsule 125 mcg PO DAILY Anoro Ellipta 62.5-25 mcg/actuation blister with device 1 inh inhalation Q24H Qty: 60 2RF Arnuity Ellipta 100 mcg/actuation blister with device 1 inh inhalation Q24H Qty: 30 2RF tizanidine [Zanaflex] 4 mg tablet 4 mg PO .at bedtime Qty: 30 5RF venlafaxine [Effexor XR] 75 mg capsule,extended release 24hr 75 mg PO QAM Qty: 30 5RF (DME) Cam boot to left See Rx Instructions .Route .MEDSUPPLY Qty: 1 0RF Rx Instructions: As directed by HOME (DME) ASO to left See Rx Instructions .Route .MEDSUPPLY Qty: 1 0RF Rx Instructions: As directed by HOME albuterol sulfate [Ventolin HFA] 90 mcg/actuation HFA aerosol inhaler 2 puff inhalation Q6H PRN (Reason: shortness of breath or wheezing) Qty: 8.5 0RF Discharge Orders: Discharge ED (Routine); Ordered 01/03/24 Ordered By: Aubrie Rodas Referrals: Xavi Jang, PARTS MANAGER-C [Primary Care Provider] - Patient Instructions: Contusion Coding Level of Care Code ED Managed Care Provider for Olga Lidia Sorensen
[2024-01-03 19:35] VITALS: BP 113/68; PULSE 75; O2SAT 97
== END 2024-01-03 19:36 | disposition home or self-care (01) ==
PROVIDERS: Emergency Provider Physician Assistant; PCP Nurse Practitioner
DX: S60.222A Contusion of left hand, initial encounter (principal); W22.8XXA Striking against or struck by other objects, initial encounter
CPT/HCPCS: 73110; 73130; 99283

== ENCOUNTER → 2024-02-14 10:45 | Outpatient (BNVA) | payer BC, MEDICAID, SELFPAY | PROVIDERS: PCP Nurse Practitioner; Visit Provider Nurse Practitioner | DX: R05.9 Cough, unspecified (principal) | CPT/HCPCS: 71046 ==

== ENCOUNTER → 2024-04-17 14:50 | Outpatient (BNVA) | payer MEDICAID, SELFPAY | PROVIDERS: PCP Nurse Practitioner; Visit Provider Nurse Practitioner Family | DX: M19.021 Primary osteoarthritis, right elbow (principal); M25.421 Effusion, right elbow; M25.521 Pain in right elbow | CPT/HCPCS: 73080 ==

== ENCOUNTER → 2024-05-23 09:12 | Outpatient (BNVA) | payer BC, MEDICAID, SELFPAY | PROVIDERS: PCP Nurse Practitioner; Visit Provider Physician Assistant | DX: M25.521 Pain in right elbow (principal); M77.11 Lateral epicondylitis, right elbow | CPT/HCPCS: 73080 ==

== ENCOUNTER 2024-07-13 09:36 | Emergency (ER) | payer BC, MEDICAID, SELFPAY ==
[2024-07-13 10:30] VITALS: BP 104/72; PULSE 65; RESP 18; TEMP 36.4; O2SAT 98; BMI 21.9
--- NOTE | 2024-07-13 10:40 | ECG_ITS ---
[facility] Test Date: 2024-07-13 Pat Name: Lucero Bird Department: Room: Gender: Female Baby Counselor: : 1965 Requested By: Hoang Ponce Order Number: [id number] Juani MD: Lester Marie M.D. Measurements Intervals [place] Rate: 70 P: 79 WA: 155 QRS: 83 QRSD: 102 T: 68 QT: 386 QTc: 419 Interpretive Statements SINUS RHYTHM Compared to ECG 04/18/2022 06:36:59 No significant changes Electronically Signed On 07-13-2024 19:26:50 PLATFORM ENGINEER by Lester Marie M.D. [email or web address]
[2024-07-13 11:22] VITALS: BP 105/75; BP 109/80; BP 111/73; PULSE 64; PULSE 69; PULSE 80
--- NOTE | 2024-07-13 11:22 | XRR_ITS ---
PROCEDURE INFORMATION: Exam: XR Chest Exam date and time: 07/13/2024 11:28 AM Age: 58 years old Clinical indication: Cough and dyspnea; Additional info: Dyspnea/cough TECHNIQUE: Imaging protocol: Radiologic exam of the chest. Views: 1 view. COMPARISON: CR XR chest 2V* [id number] 02/14/2024 10:44 AM FINDINGS: Lungs: Unremarkable. No consolidation or mass. Pleural spaces: Unremarkable. No pleural effusion. No pneumothorax. Heart/Mediastinum: Unremarkable. No cardiomegaly. Bones/joints: Unremarkable. XR/XR chest 1V portable [id number] IMPRESSION: No acute findings.
--- NOTE | 2024-07-13 11:35 | ED_ITS ---
HPI - Dizziness General: Chief Complaint: Dizziness Stated Complaint: congestion/sick Time Seen by Provider: 07/13/24 11:19 History of Present Illness: HPI Narrative: 58-year-old female presents to the [facility] ency room complaining of dizziness cough congestion symptoms began yesterday. She has had some diarrhea myalgias headache nonproductive cough. This been going on for about the last 3 days, the worst of her symptoms began this morning. She has not had any hematemesis or coffee-ground emesis. She also complains of being somewhat dizzy at times. No vision changes no difficulty with speech or gait. Associated symptoms: Reports chills; Denies chest pain Related Data Home Medications ?Medication ?Instructions ?Recorded ?Confirmed cholecalciferol (vitamin D3) 125 125 mcg PO DAILY 10/0707/13/24 mcg (5,000 unit) capsule diclofenac sodium 1 % topical gel 4 g topical QID PRN Pain 07/13/24 07/13/24 (Voltaren Arthritis Pain) ondansetron 4 mg disintegrating 8 mg PO BID PRN Nausea And Vomiting 07/13/24 07/13/24 tablet Previous Rx's ?Medication ?Instructions ?Recorded tizanidine 4 mg tablet (Zanaflex) 4 mg PO .at bedtime muscle 11/29/23 spasticity #30 tabs venlafaxine 75 mg capsule,extended 75 mg PO QAM #30 ca ps 11/29/23 release 24 hr (Effexor XR) albuterol sulfate 90 mcg/actuation 2 puff inhalation Q 6H PRN 02/14/24 aerosol inhaler (Ventolin HFA) shortness of breath or wheezing #8.5 grams diclofenac sodium 75 mg 75 mg PO BID PRN pain #30 ta bs 04/17/24 tablet,delayed release fluticasone furoate 100 1 inh inhalation Q24H #30 ea 05/11/24 mcg/actuation blister powder for inhalation (Arnuity Ellipta) umeclidinium 62.5 mcg-vilanterol 1 inh inhalation Q24H #60 ea 05/11/24 25 mcg/actuation powdr for inhalation (Anoro Ellipta) Allergies Allergy/AdvReac Type Severity Reaction Status Date / Time codeine Allergy Severe ADR-Dizzine Verified 07/13/24 10:43 ss Review of Systems Const: Reports: fever(s) and chills Card: Denies: chest pain Resp: Denies: dyspnea GI: Denies: abdominal pain : Denies: dysuria, urinary frequency or urinary urgency Musc: Denies: neck pain or back pain Skin/Breast: Denies: rash Neuro: Reports: dizziness PFSH ED PFSH: Medical History Anxiety, generalized Personal history of nicotine dependence age 15 Migraine Blind hypertensive eye, right Surgical History History of eye surgery right eye 8 to 10 surgeries History of laparotomy Cyst ovary Family History Grandmother Cancer Mother Cancer Other Diabetes Denies family history of Stroke Social History Smoking and tobacco/nicotine status: never used tobacco/nicotine Second hand smoke exposure: No Alcohol intake: never Substance/Drug Use: never Adopted: No Caregiver/support person: No Lives independently: Yes Household members: spouse Housing: House Marital status: Number of children: 2 service: No Current occupational status: unemployed Current occupational exposures/hazards: No Pets and animals: Yes Pets & animals: dog(s) Do you think of yourself as: Straight/Heterosexual Current gender identity: Female Physical Exam Const: COMMON NORMALS: no acute distress GENERAL APPEARANCE: cooperative and comfortable ORIENTATION/CONSCIOUSNESS: Yes awake, Yes oriented to person, Yes oriented to place and Yes oriented to time HENMT: COMMON NORMALS: normocephalic, atraumatic and hearing grossly normal bilaterally HEAD & SCALP: normocephalic and atraumatic Resp: COMMON NORMALS: normal respiratory effort, No retractions, No use of accessory muscles and clear to auscultation bilaterally AUSCULTATION: clear to auscultation bilaterally Cardio: COMMON NORMALS: regular rate, regular rhythm and No murmurs present (Cardio) RATE: regular rate RHYTHM: regular rhythm GI: COMMON NORMALS: Soft to palpation and No hepatosplenomegaly present AUSCULTATION: Yes normoactive bowel sounds PALPATION: Yes Soft to palpation, No Tenderness to palpation present (GI), No Guarding due to palpation present (GI) and Yes No hepatosplenomegaly present Extremity: COMMON NORMALS: normal to inspection, capillary refill normal, no clubbing, cyanosis or edema, no calf tenderness and no pedal edema Neuro: SENSORIUM/ORIENTATION: Yes oriented to person, Yes oriented to place and Yes oriented to time Skin: COMMON NORMALS: no rashes or lesions noted GENERAL SKIN EXAM: no rashes or lesions noted Course Vital Signs: Vital signs: Vital Signs Temperature 97.5 F L 07/13/24 10:30 Pulse Rate 66 07/13/24 13:30 Respiratory Rate 23 H 07/13/24 12:00 Blood Pressure 105/75 07/13/24 13:30 Pulse Oximetry 96 07/13/24 13:30 Oxygen Delivery Me thod Room Air 07/13/24 10:30 MDM - Dizziness Medical Decision Making Exam unremarkable symptoms per patient history is suggestive of COVID or flu she did test positive for COVID. Discussed antiviral she would prefer to pass on those. Supportive cares as needed use albuterol as needed vital signs otherwise unremarkable chest x-ray does not show any signs of secondary pneumonias. Medical Records I reviewed the patient's medical records. Lab Data I reviewed the patient's lab results. Radiology Impressions Chest X-Ray 07/13/24 11:22 IMPRESSION: No acute findings. Laboratory Results Influenza A (PCR) Negative (Negative) 07/13/24 11:47 Influenza Type B (PCR) Negative (Negative) 07/13/24 11:47 RSV (PCR) Negative (Negative) 07/13/24 11:47 SARS-CoV-2 (PCR) Positive (Negative) A 07/13/24 11:47 All radiology interpretation(s) finalized by discharge Discharge Plan Discharge Patient Disposition: Home Clinical Impression: COVID-19 Condition: Stable Prescriptions: No Action cholecalciferol (vitamin D3) 125 mcg (5,000 unit) capsule 125 mcg PO DAILY tizanidine [Zanaflex] 4 mg tablet 4 mg PO .at bedtime Qty: 30 5RF venlafaxine [Effexor XR] 75 mg capsule,extended release 24hr 75 mg PO QAM Qty: 30 5RF albuterol sulfate [Ventolin HFA] 90 mcg/actuation HFA aerosol inhaler 2 puff inhalation Q6H PRN (Reason: shortness of breath or wheezing) Qty: 8.5 2RF diclofenac sodium 75 mg tablet,delayed release (DR/EC) 75 mg PO BID PRN (Reason: pain) Qty: 30 0RF Anoro Ellipta 62.5-25 mcg/actuation blister with device 1 inh inhalation Q24H Qty: 60 2RF Arnuity Ellipta 100 mcg/actuation blister with device 1 inh inhalation Q24H Qty: 30 2RF diclofenac sodium [Voltaren Arthritis Pain] 1 % gel 4 g topical QID PRN (Reason: Pain) Rx Instructions: apply to single knee, ankle, foot; for foot includes sole/toes/top of foot ondansetron 4 mg tablet,disintegrating 8 mg PO BID PRN (Reason: Nausea And Vomiting) Discharge Orders: Discharge ED (Routine); Ordered 07/13/24 Ordered By: Hoang Mehta Referrals: Xavi Jang, [employer] [Primary Care Provider] - Discharge Diet: Usual diet Discharge Activity: Increase activity as tolerated Patient Instructions: COVID-19 (Coronavirus Disease 2019) (ED), Opioid Safety, Pain Management Activity Restrictions/Additional Instructions: Thank you for choosing [facility] for your healthcare needs today. It is very important that you follow up as instructed or that you return to the Emergency Department should you have concerns or if your condition changes or worsens in any way. Print Language: Hungarian Coding Level of Care Code ED Tool Maker Bench for Olga Lidia Sorensen
[2024-07-13 11:45] VITALS: BP 119/74; PULSE 68; RESP 19; O2SAT 98
[2024-07-13 12:00] VITALS: BP 105/75; PULSE 65; RESP 23; O2SAT 100
[2024-07-13 12:34] LABS: Influenza A NEGATIVE (Negative); Influenza B NEGATIVE (Negative); Respiratory Syncytial Virus Ce NEGATIVE (Negative)
[2024-07-13 12:39] LABS: SARS-CoV-2 PCR Positive (Negative)
[2024-07-13 13:30] VITALS: BP 105/75; PULSE 66; O2SAT 96
== END 2024-07-13 13:31 | disposition home or self-care (01) ==
PROVIDERS: Emergency Provider Family Medicine; PCP Nurse Practitioner
DX: U07.1 COVID-19 (principal); Z11.52 Encounter for screening for COVID-19
CPT/HCPCS: 71045; 87637; 93005; 99284

== ENCOUNTER → 2024-10-07 11:08 | Outpatient (BNVA) | payer BC, MEDICAID, SELFPAY | PROVIDERS: PCP Nurse Practitioner; Visit Provider Nurse Practitioner | DX: E55.9 Vitamin D deficiency, unspecified (principal); F41.1 Generalized anxiety disorder | CPT/HCPCS: 80053; 80061; 82306; 85025 ==

== ENCOUNTER 2024-10-23 12:48 | Outpatient (CLI) | payer BC, MEDICAID, SELFPAY ==
--- NOTE | 2024-10-23 13:00 | MM_ITS ---
WS: [id number] BILATERAL 3D TOMOSYNTHESIS DIGITAL SCREENING MAMMOGRAPHY WITH CAD CLINICAL INFORMATION: Z12.31 - Encounter for screening mammogram for malignant ... HISTORY: Screening mammogram. No current complaints. COMPARISON: 2022 TECHNIQUE: Bilateral CC and MLO views. FINDINGS: The breasts are composed of heterogeneous fibroglandular density tissue, which can limit the detection of small underlying mass lesions. No suspicious mass, asymmetry, calcifications, or architectural distortion. No evidence of malignancy. MM/MM [facility] tomosynthesis [id number] IMPRESSION: DENSITY: The breasts are heterogeneously dense, which may obscure small masses. BI-RADS: 1 - Negative FOLLOW UP: 1 Year Follow-up Recommend return to annual screening mammography.
== END 2024-10-23 12:49 | disposition home or self-care (01) ==
PROVIDERS: PCP Nurse Practitioner; Visit Provider Nurse Practitioner
DX: Z12.31 Encounter for screening mammogram for malignant neoplasm of breast (principal)
CPT/HCPCS: 77063; 77067

== ENCOUNTER → 2025-01-16 13:04 | Outpatient (BNVA) | payer BC, MEDICAID, SELFPAY | PROVIDERS: PCP Nurse Practitioner; Visit Provider Nurse Practitioner Family | DX: R39.9 Unspecified symptoms and signs involving the genitourinary system (principal) | CPT/HCPCS: 81000 ==

== ENCOUNTER → 2025-01-21 09:11 | Outpatient (BNVA) | payer BC, MEDICAID, SELFPAY | PROVIDERS: PCP Nurse Practitioner; Visit Provider Nurse Practitioner | DX: E55.9 Vitamin D deficiency, unspecified (principal); N39.0 Urinary tract infection, site not specified | CPT/HCPCS: 80053; 81000; 82306 ==

== ENCOUNTER 2025-01-31 06:46 | Day surgery (SDC) | payer BC, MEDICAID, SELFPAY ==
[2025-01-31] VITALS (10 sets, daily range): BP systolic 90–112; BP diastolic 57–76; PULSE 59–71; RESP 16–18; TEMP 36.2–36.5; O2SAT 95–98
[2025-01-31] MEDS: acetaminophen 1,000 MG/100 ML PIGGYBACK 400 MG IV (07:29)
--- NOTE | 2025-01-31 08:23 | P.ANESASSM_ITS ---
Pre-Anesthetic Assessment Height/Weight: Height 5 ft 4.5 in Weight 129 lb Temp Pulse Resp BP Pulse Ox O2 Del Method 97.7 F 70 16 90/61 97 Room Air 01/31/25 07:44 01/31/25 07:44 01/31/25 07:44 01/31/25 07:44 01/31/25 07:44 01/31/25 07:45 Preop Diagnosis: Carpal tunnel syndrome Operation Date: 01/31/25 08:50 Proposed Procedures p RIGHT Carpal Tunnel Release(Right) - Benedicto Fischer, DO Was Beta Dhruv taken within 24 hours: N/A Was Clonidine taken within 24 hours: N/A Last intake: Intake Last Liquid Date 01/30/25 Last Liquid Time 21:00 Last Solid Date 01/30/25 Last Solid Time 18:00 Social Tobacco and No alcohol Exam alert and oriented x 3 Airway Submandibular: within normal limits Cervical ROM: within normal limits Mallampati: Class III Comments: Comments: Edentulous Anesthetic Plan ASA status: 3 Anesthesia: MAC Other: No prior issues with anesthesia NPO since yesterday evening History of chronic bronchitis. Current smoker. Rhonchi noted on auscultation. Preop DuoNeb given Mildly low BP in preop. Preop BP 90/61 Labs reviewed from 01/21/2025 and acceptable for procedure today Prior EKG sinus rhythm Plan for [facility] Medications/Allergies Home Medications ?Medication ?Instructions ?Recorded ?Confirmed ?Last Taken ?Type diclofenac sodium 1 % topical gel 4 g topical QID PRN Pain 07/13/24 01/30/25 01/30/25 History (Voltaren Arthritis Pain) fluticasone furoate 100 1 inh inhalation Q24H #30 ea 10/07/24 01/30/25 01/30/25 Rx mcg/actuation blister powder for inhalation (Arnuity Ellipta) tizanidine 4 mg tablet (Zanaflex) 4 mg PO .at bedtime muscle 10/07/24 01/30/25 01/30/25 Rx spasticity #30 tabs umeclidinium 62.5 mcg-vilanterol 1 inh inhalation Q24H #60 ea 10/07/24 01/30/25 01/30/25 Rx 25 mcg/actuation powdr for inhalation (Anoro Ellipta) venlafaxine 75 mg capsule,extended 75 mg PO QAM #30 ca ps 10/07/24 01/30/25 01/30/25 Rx release 24 hr (Effexor XR) albuterol sulfate 90 mcg/actuation 2 puff inhalation Q 6H PRN 01/21/25 01/30/25 01/30/25 Rx aerosol inhaler (Ventolin HFA) shortness of breath or wheezing #8.5 grams atorvastatin 20 mg tablet (Lipitor) 20 mg PO DAILY #30 tabs 01/21/25 01/30/25 01/30/25 Rx cholecalciferol (vitamin D3) 125 250 mcg (2 x 125 mcg (5,000 unit)) 01/21/25 01/30/25 01/30/25 Rx mcg (5,000 unit) capsule PO DAILY #60 caps hydroxyzine pamoate 25 mg capsule 25 mg PO .at bedtime PRN anxiety 01/30/25 01/30/25 01/30/25 History tramadol 50 mg tablet 50 mg PO Q6H PRN pain 5 days #20 01/31/25 Unknown Rx tabs Allergies Allergy/AdvReac Type Severity Reaction Status Date / Time codeine Allergy Severe ADR-Dizzine Verified 01/21/25 08:41 ss Current Medications Generic Name Dose Route Start Last Admin Trade Name Freq PRN Reason Stop Dose Admin Sodium Chloride 1,000 mls @ 30 mls/hr 01/31/25 07:15 01/31/25 07:29 Sodium Chloride 0.9% IV 02/01/25 07:14 30 mls/hr .Q24H CHRIS Administration PFSH Anesthesia Medical History (Updated 01/25/25 @ 12:58 by INÉS Wilde) Chronic bronchitis Hyperlipidemia, mixed Anxiety, generalized Personal history of nicotine dependence age 15 Migraine Blind hypertensive eye, right Surgical History History of eye surgery right eye 8 to 10 surgeries History of laparotomy Cyst ovary Family History Grandmother Cancer Mother Cancer Other Diabetes Denies family history of Stroke Social History Smoking and tobacco/nicotine status: never used tobacco/nicotine Second hand smoke exposure: No Alcohol intake: never Substance/Drug Use: never Adopted: No Caregiver/support person: No Lives independently: Yes Household members: spouse Housing: House Marital status: Number of children: 2 service: No Current occupational status: unemployed Current occupational exposures/hazards: No Pets and animals: Yes Pets & animals: dog(s) Do you think of yourself as: Straight/Heterosexual Current gender identity: Female
--- NOTE | 2025-01-31 08:28 | P.HP_ITS ---
Same Day Surgery H&P Indication for Procedure/HPI DATE OF PROCEDURE: January 31, 2025 CHIEF COMPLAINT/INDICATIONFOR SURGICAL PROCEDURE: Right carpal tunnel syndrome PREOP DIAGNOSIS: Right carpal tunnel syndrome PLANNED PROCEDURE: Operation Date: 01/31/25 08:50 Proposed Procedures p RIGHT Carpal Tunnel Release(Right) - Benedicto Fischer, DO Medications/Allergies* Home Medications ?Medication ?Instructions ?Recorded ?Confirmed ?Type diclofenac sodium 1 % topical gel 4 g topical QID PRN Pain 07/13/24 01/30/25 History (Voltaren Arthritis Pain) hydroxyzine pamoate 25 mg capsule 25 mg PO .at bedtime PRN anxiety 01/30/25 01/30/25 History Allergies/Adverse Reactions Allergy/AdvReac Type Severity Reaction Status Date / Time codeine Allergy Severe ADR-Dizzine Verified 01/21/25 08:41 ss Current Medications: Generic Name Dose Route Start Last Admin Trade Name Freq PRN Reason Stop Dose Admin Sodium Chloride 1,000 mls @ 30 mls/hr 01/31/25 07:15 01/31/25 07:29 Sodium Chloride 0.9% IV 02/01/25 07:14 30 mls/hr .Q24H CHRIS Administration Pertinent History/Comorbid Conditions* Medical History (Updated 01/25/25 @ 12:58 by INÉS Wilde) Chronic bronchitis Hyperlipidemia, mixed Anxiety, generalized Personal history of nicotine dependence age 15 Migraine Blind hypertensive eye, right Surgical History (Updated 09/21/21 @ 12:10 by INÉS Wilde) History of eye surgery right eye 8 to 10 surgeries History of laparotomy Cyst ovary Family History (Updated 09/21/21 @ 11:47 by Farrah Castellanos MA) Diabetes Cancer Grandmother Mother Denies family history of Stroke Social History Smoking and tobacco/nicotine status: never used tobacco/nicotine Second hand smoke exposure: No Alcohol intake: never Substance/Drug Use: never Adopted: No Caregiver/support person: No Lives independently: Yes Household members: spouse Housing: House Marital status: Number of children: 2 service: No Current occupational status: unemployed Current occupational exposures/hazards: No Pets and animals: Yes Pets & animals: dog(s) Do you think of yourself as: Straight/Heterosexual Current gender identity: Female Pertinent Exam Findings alert, oriented x 3, operative site marked and procedure specific exam findings Please refer to detailed orthopedic examination on 12/25/2024 listed below: Right Elbow- -Full ROM of elbow, but endorses some pain with end Range of motion. -Point tenderness at the ECRB-lateral epicondyles -Pain with pronation supination of forearm -following maneuvers exacerbate pain at lateral epicondyle * resisted wrist extension with elbow fully extended * resisted extension of the long fingersNegative tinels sign at wrist. Right Hand -positive Tinels sign. positive phalen's sign. thenar atrophy and weakness noted. 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 Fingers are warm and well-perfused. Radial pulse 2+. Recommendations Risks and benefits of procedure reviewed and Patient/family agree to proceed Surgery/Procedure today Other Plans: Plan to proceed to the OR today for right carpal tunnel release. Patient understands the ins and outs procedure the risk benefits complication alte rnatives surgical nonsurgical treatment options. Understanding risk of surgery patient like to proceed with surgical invention. All questions answered at this time. Once again we reviewed the impacts of nerve recovery and decompression she understands this may not have full recovery due to her having severe results on her nerve conduction study. At this point in time she is ready pursue surgic al intervention all questions answered at this time. Coding Level of Care Code Acute Code for Olga Lidia Sorensen
[2025-01-31] MEDS: ceFAZolin 2,000 MG in sodium chloride 0.9% (plus) 50 ML 100 MG IV (08:37)
[2025-01-31] MEDS: ROPivacaine 0.5% SDV 30 mL 150 MG INJECTION (09:00)
[2025-01-31] MEDS: lidocaine-epi 1% 20 mL INJ INJECTION (09:00)
--- NOTE | 2025-01-31 09:00 | W.PM.BPON ---
Date of Procedure: 01/31/2025 Surgeon: Benedicto Fischer DO Community Development Aide(s): None Procedure(s) performed: Right carpal tunnel release Findings of the procedure(s): Underwent procedure as planned without issues or complications taken to recovery in stable condition Estimated blood loss: 3 mL Specimen(s) removed: None Post-operative diagnosis: Right carpal tunnel syndrome
--- NOTE | 2025-01-31 09:01 | P.OP_ITS ---
Operative Report Date of procedure: January 31, 2025 Surgeon: Benedicto Fischer DO Procedure: Preop Diagnosis: Right Carpal Tunnel Syndrome Post-op diagnosis: Same Procedure done: 1. Right carpal tunnel release Surgeon: Benedicto Fischer DO Anesthesia: MAC (Local) Estimated blood loss: 3 mL Tourniquet time 4 minutes IV fluids: See anesthesia record Complications: None Findings: See operative report narrative Condition: stable Disposition: same day Brief History: Patient is a pleasant 59 year-old female with with right carpal tunnel syndrome. Patient has been worked up in the outpatient setting findings and physical examination consistent with this. Patient nerve conduction studies consistent with carpal tunnel syndrome. We detailed out patient's risk benefits complication alternatives with surgical and nonsurgical treatment options. Through shared decision making, patient agrees to proceed with surgical intervention of the right carpal tunnel release . Patient understands and agrees with current plan. All questions answered. Patient elects to proceed with surgical intervention with carpal tunnel release. Procedure: Patient seen and evaluated in the preoperative holding area. Consent was revie wed and signed with patient. Correct extremity was marked. Patient was seen evaluated by the anesthesia department once cleared for surgery was brought back to the operative suite. Patient was kept on [facility] in supine position all bony prominences were well-padded patient properly secured to the bed. Right upper extremity was then placed onto an armboard. A nonsterile tourniquet was applied to the Right upper arm. Patient underwent anesthesia per the anesthesia department. Patient's Right upper extremity was then prepped and draped in standard orthopedic fashion. Final timeout performed. Patient received appropriate preoperative antibiotics. Under sterile aseptic technique patient received local anesthesia over the preplanned carpal tunnel incision site. Esmarch was used to exsanguinate the Right upper extremity and tourniquet was insufflated to 250 mmHg. A standard mini open Right carpal tunnel incision was made. Starting distally at Wang's cardinal line in line with the fourth ray extending proximally distal to the wrist crease centered over the carpal tunnel. Sharp scalpel incision was made through skin and subcutaneous tissue. Self-retaining retract or was placed and the palmar fascia was identified. This was then split longitudinally and direct visualization of the transverse carpal ligament was then made. I then utilizing scalpel feathered through the transverse carpal ligament until I entered the floor of the transverse carpal tunnel ligament into the carpal tunnel. Next I switched to dissection scissors and completed my release of the transverse carpal ligament distally with care to protect the recurrent motor branch. I completely released into the palmar fat and until no entrapment was noted distally. Care was made to protect the superficial palmar arch during my distal dissection. Next I utilized a nasal speculum placed on top of the transverse carpal ligament and utilize this to retract the subcutaneous fat and tissue and under direct loupe magnification was able to identify the transverse carpal ligament. Next I then protected the contents of the carpal tunnel and subsequently utilizing dissection scissors under loupe magnification completely released the transverse carpal ligament proximally into the antebrachial fascia. Care was made to protect the palmar cutaneous branch by keeping my scissors curved ulnarly. Once completely released, I then placed my [place] and had appropriate decompression of the carpal tunnel proximally as well as distally. I then inspected the contents of the carpal tunnel which showed an hourglass shape of the median nerve showing its compression. No masses were noted. Tendons appeared healthy. Wound was then thoroughly irrigated. Tourniquet deflated. Hemostasis satisfactory with bipolar electrocautery. I then closed the incision with interrupted nylon stitches. Xeroform 4 x 4's and a bulky soft dressing was applied. Patient was then awakened from anesthesia and taken to PACU in stable condition. Patient tolerated procedure without complications. Disposition: Patient taken to PACU in stable condition recovering well. Dressing clean dry and intact. Patient will receive appropriate discharge instructions as well as pain medication postoperatively. Patient to follow-up with me in the office in 2 weeks. They understand they may be weightbearing as tolerated to the right hand. Patient should keep incision clean dry and intact. Patient understands if any questions or concerns may contact the office.
--- NOTE | 2025-01-31 10:01 | ANE.PACU2 ---
Inpatient post-anesthesia follow up: Airway intact: Yes Vital signs: Temperature 97.2 F Pulse Rate 71 Respiratory Rate 16 Blood Pressure 105/57 Pulse Oximetry 96 Oxygen Delivery Me thod Room Air Oxygen Flow Rate Fraction of Inspir ed Oxygen Hydration adequate: Yes Nausea and vomiting: No Pain level: 1 Mental status: Baseline
== END 2025-01-31 10:01 | disposition home or self-care (01) ==
PROVIDERS: PCP Nurse Practitioner; Visit Provider Student in an Organized Health Care Education/Training Program
PROC: (CPT 64721; principal; 2025-01-31 08:40)
DX: G56.01 Carpal tunnel syndrome, right upper limb (principal); E78.2 Mixed hyperlipidemia; J42 Unspecified chronic bronchitis; F41.9 Anxiety disorder, unspecified; Z87.891 Personal history of nicotine dependence
CPT/HCPCS: 64721; 94640; J0131; J0690; J1885; J2250; J2371; J2704; J2795; J7030; J7613; J7644; J9999